=== PATIENT | male | born 1985 | race Native Hawaiian/Other Pacific Islander ===

== ENCOUNTER 2017-12-28 06:52 | Day surgery (SDC) | payer OTHER ==
[~2017-12-28 06:52] MED LIST: EPINEPHrine 1:1000 Nasal Sol(30mL) ONE; Lidocaine/Epinephrine 1% 1:100000 10 ML IJ ONE; ceFAZolin IV 1 gm in Dextrose 1 GM/50 ML BAG IVPB ONE
[2017-12-28] MEDS ORDERED: Acetaminophen-Codeine 300/30 mg Tab PO PRN (08:20)
[2017-12-28] MEDS ORDERED: Dextrose 5%/0.45% NS 1,000 ML IV SCH (08:30)
[2017-12-28] MEDS ORDERED: Phenylephrine 10 mg/ml Inj ONE (09:51)
[2017-12-28] MEDS ORDERED: Midazolam 2 MG/2 ML VIAL ONE (09:51)
[2017-12-28] MEDS ORDERED: Etomidate 20 mg/10ml Inj IV ONE (09:51)
[2017-12-28] MEDS ORDERED: Succinylcholine Chloride 20 mg/ml Syr (5 ml) IV ONE (10:07)
[2017-12-28] MEDS ORDERED: HYDROmorphone 0.5 mg/0.5 ml ISec IVP PRN (12:00)
[2017-12-28 14:51] VITALS: TEMP 98
[2017-12-28 15:28] VITALS: BP 139/68; PULSE 102; RESP 13; O2SAT 100
--- NOTE | 2017-12-28 23:24 | OP ---
Copied To: Shahid Sanchez MD Attending MD: Shahid Sanchez MD PROCEDURE DATE: 12/28/2017 PREOPERATIVE DIAGNOSES: Deviated septum, large turbinates, sinusitis, nasal polyposis. POSTOPERATIVE DIAGNOSES: Deviated septum, large turbinates, sinusitis, nasal polyposis. PROCEDURES: Septoplasty, endoscopic bilateral inferior turbinate reduction, endoscopic bilateral ethmoidectomy, endoscopic bilateral maxillary antrostomy, endoscopic bilateral sphenoidotomy, endoscopic bilateral frontal sinusotomy. SIGNIFICANT FINDINGS: Deviated septum, large inferior turbinates, polyposis noted in the ethmoid area, maxillary antrum stenosed on both sides, sphenoid antrum stenosed on both sides, frontal sinus recess stenosed on both sides. DESCRIPTION OF PROCEDURE: The patient was brought into the room, placed in supine position. Anesthesia was initiated through an ET tube. Navigation was set up and used throughout the case in order to ensure the skull base and orbit were not entered. Adrenaline-soaked pledgets were inserted into the nasal cavity, remained there for at least five minutes and then removed. The patient was draped in the usual manner. The septum was injected with lidocaine with epinephrine on both sides. A Srinivas incision was first made on the left, and mucoperichondrial flap was raised. A vertical incision was made in the cartilage leaving 0.5 cm anterior and superior strut, and a mucoperichondrial flap was raised on the other side. Deviated portion of the bone and cartilage were removed using forceps and chisel. A quilting suture was used to suture the two flaps together and closed the Srinivas incision. Next, the inferior turbinate was reduced in size using scissors, going from anterior to posterior direction. Suction cautery was used to control the bleeding on both sides. Next, attention was turned to the left. The middle turbinate was medialized. The uncinate process was medialized using a [place] elevator and removed using forceps. The ethmoid bulla was entered using a debrider, going posteriorly to the basal lamella anterior and superiorly until the ethmoid bulla was removed. The basal lamella was entered. Posterior ethmoid cells were entered and opened. The skull base was identified and followed anteriorly all the way to the area of anterior ethmoid air cells. The frontal recess was noted to be stenosed and opened using forceps. A curved suction was used to locate the maxillary antrum which was noted to be stenosed and opened using forceps. The sphenoid antrum was noted to be stenosed and opened using forceps. Attention was turned to the other side. The middle turbinate was medialized. The uncinate process was medialized using a [place] elevator and removed using forceps. The ethmoid bulla was entered inferomedially using a debrider, going posteriorly to the basal lamella, then anterior and superiorly until the ethmoid bulla was removed. The basal lamella was entered. Posterior ethmoid cells were entered and opened. Skull base was identified and followed anteriorly all the way to the area of the anterior ethmoid air cells. Frontal recess was noted to be stenosed and opened using forceps. A curved suction was used to locate the maxillary antrum which was noted to be stenosed and opened using forceps. The sphenoid antrum was noted to be stenosed and opened using forceps. Bleeding was controlled using adrenalin-soaked pledgets and suction cautery on both sides. Stents were placed. Splints were placed. The patient was taken off anesthesia and taken to recovery room in stable manner. Shahid Sanchez MD
== END 2017-12-28 14:54 | disposition home or self-care (01) ==
LOC: C.SDS 06:52
PROVIDERS: ATTEND Otolaryngology
DX: J32.0 Chronic maxillary sinusitis (principal); J32.1 Chronic frontal sinusitis; J32.2 Chronic ethmoidal sinusitis; J33.9 Nasal polyp, unspecified; J34.2 Deviated nasal septum; J34.3 Hypertrophy of nasal turbinates
CPT/HCPCS: 30520; 30802; 31256; 31276; 31287; 88304; J0690; J1170; J2250; J2370; J2405; J3010; J7030; J7040

== ENCOUNTER 2017-12-29 08:43 | Day surgery (SDC) | payer OTHER ==
--- NOTE | 2017-12-29 08:49 | C.PDOC ---
History Of Present Illness 32 Y/O MALE WITH PAST MEDICAL HISTORY OF TET FALLOT BROUGHT TO ED BY DR SANCHEZ FOR POST OP EPISTAXIS. S/P SINUSITIS SURG 12/28 FOR POLYPS. 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 PATIENT ADMITS TO INTRACT EPISTAXIS AND CONCERN FOR POSSIBLE VENOUS BLEED. PER MOM, NPO SINCE 0700. AVR. PT ON ASA 81 EXAM NONTOXIC NARD HEENT +SLOW BLEED R EPISTAXIS, ATRAUM NO STRIDOR REMAINDER NEG Time Seen by Provider: 12/29/17 08:44 History Per: Patient History/Exam Limitations: None Onset/Duration Of Symptoms: Hrs Current Symptoms Are (Timing): Still Present Past Medical History Reviewed: Historical Data, Nursing Documentation, Vital Signs Vital Signs: Last Vital Signs Temp 98.8 F 12/29/17 08:49 Pulse 127 H 12/29/17 08:49 Resp 18 12/29/17 08:49 BP 136/86 12/29/17 08:49 Pulse Ox 99 12/29/17 08:49 - Medical History PMH: Anemia, Mitral Valve Prolapse (valve replacement Apr 2017) Surgical History: No Surg Hx Family History: States: No Known Family Hx Review Of Systems Constitutional: Negative for: Fever, Chills ENT: Positive for: Nose Pain, Nose Discharge Respiratory: Negative for: Cough Skin: Negative for: Rash Physical Exam - Physical Exam Appears: Non-toxic, No Acute Distress Skin: Warm, Dry, No Rash Head: Atraumatic, Normacephalic Eye(s): bilateral: PERRL, EOMI Ear(s): Bilateral: Normal Nose: Epistaxis (right nare, slow bleeding), No Deformity Oral Mucosa: Moist Throat: Normal, No Erythema, No Exudate Neck: Supple Cardiovascular: Rhythm Regular Respiratory: Normal Breath Sounds, No Rales, No Rhonchi, No Stridor, No Wheezing Gastrointestinal/Abdominal: Soft, No Tenderness, No Guarding, No Rebound Neurological/Psych: Oriented x3, Normal Speech, Normal Cognition ED Course And Treatment - Laboratory Results Result Diagrams: 12/29/17 09:05 O2 Sat by Pulse Oximetry: 100 (RA) Pulse Ox Interpretation: Normal Progress - Re-Evaluation Re-evaluation Note: 12/29/17 08:45 DR SANCHEZ @ BEDSIDE, POSSIBLE TO O.R. IF INTRACT EPISTAXIS - Data Reviewed Data Reviewed: Old records - Critical Care Citical Care: Excluding Proc Time Critical Care Time: 90 minutes - Continuity of Care Discussed pt. case with income tax consultant/specialty: Otolaryngology Disposition Counseled Patient/Family Regarding: Diagnosis - Disposition Disposition: HOSPITALIZED Disposition Time: 08:49 Condition: SERIOUS - POA Present On Arrival: None - Clinical Impression Clinical Impression: Severe epistaxis - Scribe Statement The provider has reviewed the documentation as recorded by the Ronaibdeyvi Santana All medical record entries made by the Nathanael were at my direction and personally dictated by me. I have reviewed the chart and agree that the record accurately reflects my personal performance of the history, physical exam, medical decision making, and the department course for this patient. I have also personally directed, reviewed, and agree with the discharge instructions and disposition. Decision To Admit - Pt Status Changed To: Hospital Disposition Of: SDS- Endo,OR,Cath,IR - . Bed Request Type: Same Day Surgery Admitting Physician: Shahid Sanchez Patient Diagnosis: Severe epistaxis
[2017-12-29] MEDS ORDERED: Lidocaine/Epinephrine 1% 1:100000 10 ML IJ ONE (08:53)
[2017-12-29] MEDS ORDERED: ceFAZolin IV 1 gm in Dextrose 0 GM/0 ML BAG IVPB ONE (08:53)
[2017-12-29] MEDS ORDERED: Oxymetazoline 0.05% Nasal Spray (30 ml) NS ONE (08:57)
[2017-12-29 09:13] LABS: HEMOGLOBIN 12.4 g/dL (12.0-18.0); MEAN CELL VOLUME 87.1 fL (80.0-94.0); MEAN CORPUSCULAR HEMOGLOBIN 29.4 pg (27.0-31.0); MEAN CORPUSCULAR HGB CONC 33.7 g/dL (33.0-37.0); MEAN PLATELET VOLUME 10.1 fL (7.2-11.7); RBC 4.23 Mil/uL (4.40-5.90); RED CELL DISTRIBUTION WIDTH 13.9 % (11.5-14.5); WHITE BLOOD COUNT 16.2 K/uL (4.8-10.8)
[2017-12-29] MEDS ORDERED: Sodium Citrate/Citric Acid 15 ml Sol ONE (10:35)
[2017-12-29] MEDS ORDERED: Acetaminophen-Codeine 300/30 mg Tab PO PRN (10:46)
[2017-12-29] MEDS ORDERED: Esmolol 100 mg/10ml Inj IV ONE (10:58)
[2017-12-29] MEDS ORDERED: HYDROmorphone 0.5 mg/0.5 ml ISec IVP PRN (10:59)
[2017-12-29] MEDS ORDERED: Dextrose 5%/0.45% NS 1,000 ML IV SCH (11:00)
[2017-12-29] MEDS ORDERED: ePHEDrine 50 mg/ml Inj ONE (11:06)
[2017-12-29] MEDS ORDERED: Neostigmine Methylsulfate 3mg/3ml Syringe IV ONE (12:07)
[2017-12-29 15:56] VITALS: BP 123/57; PULSE 100; RESP 18; TEMP 97.8; O2SAT 100
--- NOTE | 2018-01-06 00:25 | OP ---
Copied To: Shahid Sanchez MD Attending MD: Shahid Sanchez MD PROCEDURE DATE: 12/29/2017 PREOPERATIVE DIAGNOSIS: Epistaxis. POSTOPERATIVE DIAGNOSIS: Epistaxis. PROCEDURE: Endoscopic cauterization of epistaxis. SIGNIFICANT FINDINGS: Bleeding noted at the ethmoid area in both sides. SURGEON: Shahid Sanchez MD DESCRIPTION OF PROCEDURE: The patient was brought into the room, placed in supine position. Anesthesia was initiated through an ET tube. A 0-degree scope was inserted into the nasal cavity on both sides. Bleeding was controlled on both sides in the ethmoid cavity. Suction cautery was used to cauterize the bleeding area in the ethmoid cavity, first on the left and then on the right. FloSeal was placed in those ethmoid cavities. Bleeding was controlled. The scope was removed. The patient was taken off anesthesia and taken to recovery room in stable manner. Shahid Sanchez MD
== END 2017-12-29 15:57 | disposition home or self-care (01) ==
LOC: C.ER 08:43 → C.SDS 08:51
PROVIDERS: ATTEND Otolaryngology
DX: R04.0 Epistaxis (principal)
CPT/HCPCS: 31238; 36415; 85027; 86850; 86900; 99284; C2615; J2001; J2710; J2765; J3010; J7030; J7040